=== PATIENT | male | born 1980 | race Caucasian/White ===

== ENCOUNTER 2020-10-14 04:46 | Emergency (ER) | payer BC ==
[~2020-10-14] VITALS: Ht 185.4 cm; Wt 129.3 kg
[2020-10-14 05:50] LABS: HEMATOCRIT 43.9 % (42.0-52.0); MEAN CELL VOLUME 84.6 fl (80.0-94.0); MEAN CORPUSCULAR HGB 27.7 pg (27.0-31.0); MEAN CORPUSCULAR HGB CONC 32.8 g/dl (33.0-37.0); MEAN PLATELET VOLUME 9.7 fl (9.6-12.3); PLATELET COUNT AUTOMATED 293 10*3/uL (130-400); RED BLOOD COUNT 5.19 10*6/uL (4.50-5.90); RED CELL DISTRI WIDTH 14.4 % (0-14.5); WHITE BLOOD COUNT 14.1 10*3/uL (4.8-10.8)
[2020-10-14 05:52] LABS: ALBUMIN 3.9 gm/dl (3.1-4.5); ALKALINE PHOSPHATASE 118 U/L (45-117); BUN 9 mg/dl (7-24); CHLORIDE 110 mmol/L (98-107); CREATININE 1.16 mg/dL (0.70-1.30); POTASSIUM 3.9 mmol/L (3.5-5.1); SGOT/AST 30 IU/L (3-35); SGPT/ALT 77 U/L (12-78); SODIUM 139 mmol/L (136-145); TOTAL PROTEIN 7.9 gm/dL (6.4-8.2)
[2020-10-14 06:13] LABS: ATYPICAL LYMPHS 2 % (0-0); BASOPHILS 1 % (0-1); TOTAL CELLS COUNTED 100 #CELLS
[2020-10-14 06:14] LABS: PLATELET SUFFICIENCY NORMAL (NORMAL)
[2020-10-14 07:06] LABS: BILIRUBIN Negative (Negative); BLOOD 3+ (Negative); CLARITY Cloudy (Clear); COLOR Orange (Yellow); GLUCOSE Negative (Negative); KETONE Negative (Negative); LEUKO ESTERASE Trace (Negative); NITRITE Negative (Negative)
[2020-10-14 07:17] LABS: RBC TNTC rbc/hpf (0-2)
[2020-10-14] MEDS ORDERED: ANUSOL HC30 GM R (08:44)
[2020-10-14] MEDS ORDERED: CIPRO500 MG PO (08:44)
== END 2020-10-14 08:50 | disposition home or self-care (01) ==
LOC: ED 04:46
PROVIDERS: Internal Medicine
DX: N41.9 Inflammatory disease of prostate, unspecified (principal); Z88.0 Allergy status to penicillin; Z88.5 Allergy status to narcotic agent

== ENCOUNTER → 2020-11-10 | Outpatient (CLI) | payer BC ==
[~2020-11-10] MED LIST: ANUSOL HC30 GM R; CIPRO500 MG PO
== END | disposition home or self-care (01) ==
LOC: CT 07:44
PROVIDERS: ATTEND Family Medicine
DX: K76.0 Fatty (change of) liver, not elsewhere classified (principal); K57.90 Diverticulosis of intestine, part unspecified, without perforation or abscess without bleeding; R31.9 Hematuria, unspecified; R10.30 Lower abdominal pain, unspecified; R10.32 Left lower quadrant pain; N50.819 Testicular pain, unspecified